=== PATIENT | female | born 1970 | race Caucasian/White ===

== ENCOUNTER 2018-06-19 14:06 | Emergency (ER) | payer SELFPAY ==
--- NOTE | 2018-06-19 14:31 | ED ---
GI/ HPI - HPI Summary HPI Summary: 47 yr old female with day two of her period, and presents here with onset of low abdominal pain 2 hours ago. Pain is 8/10. She states she gets this kind of pain with her period from time to time. She requests a toradol shot. She is having a typical menstrual flow for her. - History of Current Complaint Chief Complaint: UCAbdominalPain Time Seen by Provider: 06/19/18 14:18 Stated Complaint: LOWER RIGHT ABD PAIN Hx Last Menstrual Period: 06/17/18 Pain Intensity: 10 - Allergy/Home Medications Allergies/Adverse Reactions: Allergies Allergy/AdvReac Type Severity Reaction Status Date / Time codeine Allergy Hives Verified 06/19/18 14:07 Home Medications: Home Medications Hydrochlorothiazide TAB* [Hydrodiuril TAB*] 25 mg PO DAILY 06/19/18 [History Confirmed 06/19/18] Omeprazole 40 mg PO DAILY 06/19/18 [History Confirmed 06/19/18] cloNIDine TAB* [Catapres 0.1 MG TAB*] 0.1 mg PO DAILY PRN 06/19/18 [History Confirmed 06/19/18] PMH/Surg Hx/FS Hx/Imm Hx Endocrine/Hematology History: Denies: Hx Diabetes, Hx Thyroid Disease Cardiovascular History: Reports: Hx Hypertension Denies: Hx Congestive Heart Failure, Hx Deep Vein Thrombosis, Hx Myocardial Infarction, Hx Pacemaker/ICD Respiratory History: Denies: Hx Asthma, Hx Chronic Obstructive Pulmonary Disease (COPD), Hx Lung Cancer, Hx Pneumonia, Hx Pulmonary Embolism GI History: Denies: Hx Gall Bladder Disease, Hx Gastrointestinal Bleed, Hx Ulcer, Hx Urosepsis History: Denies: Hx Kidney Stones, Hx Renal Disease Psychiatric History: Reports: Hx Anxiety, Hx Depression - Surgical History Surgery Procedure, Year, and Place: 3 C SECTIONS Infectious Disease History: No Infectious Disease History: Reports: Hx Hepatitis - HEP C , HAS BEEN TREATED Denies: Hx Clostridium Difficile, Hx Human Immunodeficiency Virus (HIV), Hx of Known/Suspected MRSA, Hx Shingles, Hx Tuberculosis, Hx Known/Suspected VRE, Hx Known/Suspected VRSA, History Other Infectious Disease, Traveled Outside the [place] in Last 30 Days - Family History Known Family History: Positive: None Family History: no cardiovascular issues reported in family lineage - Social History Alcohol Use: None Substance Use Type: Reports: None Substance Use Comment - Amount & Last Used: previous use of heroin and pain meds Smoking Status (MU): Light Every Day Tobacco Smoker Type: Cigarettes Amount Used/How Often: 1/4 PPD Length of Time of Smoking/Using Tobacco: 30 Years Have You Smoked in the Last Year: Yes Review of Systems Constitutional: Negative Genitourinary: Other - vaginal bleeding, cramps, on her period All Other Systems Reviewed And Are Negative: Yes Physical Exam Triage Information Reviewed: Yes Vital Signs On Initial Exam: Initial Vitals Temp Pulse Resp BP Pulse Ox 98.2 F 53 20 117/77 100 06/19/18 14:10 06/19/18 14:10 06/19/18 14:10 06/19/18 14:10 06/19/18 14:10 Vital Signs Reviewed: Yes Appearance: Positive: Well-Appearing, Pain Distress - mild Skin: Positive: Warm, Skin Color Reflects Adequate Perfusion Head/Face: Positive: Normal Head/Face Inspection Eyes: Positive: EOMI ENT: Positive: Normal ENT inspection Neck: Positive: Nontender Respiratory/Lung Sounds: Positive: Clear to Auscultation, Breath Sounds Present Cardiovascular: Positive: RRR. Negative: Murmur Abdomen Description: Positive: Nontender. Negative: Distended Musculoskeletal: Positive: Strength/ROM Intact Neurological: Positive: Sensory/Motor Intact, Alert, Oriented to Person Place, Time, CN Intact II-III, Normal Gait, Speech Normal Psychiatric: Positive: Normal Diagnostics - Vital Signs Vital Signs Temp Pulse Resp BP Pulse Ox 06/19/18 14:10 98.2 F 53 20 117/77 100 - Laboratory Lab Statement: Any lab studies that have been ordered have been reviewed, and results considered in the medical decision making process. GIGU Course/Dx - Course Course Of Treatment: 47 yr old with severe RLQ pain, bleeding. Cannot do HCG by urine here, due to heavy blood in urine. She will go by ambulance to [facility]. [facility] [place] [facility]. GEN Bashir one of the providers in the ER at [place] who is aware of the patient. - Diagnoses Provider Diagnoses: Right lower quadrant abdominal pain Discharge - Sign-Out/Discharge Documenting (check all that apply): Patient Departure All imaging exams completed and their final reports reviewed: No Studies - Discharge Plan Condition: Fair Disposition: [facility] Referrals: Jerica Elmore MD [Primary Care Provider] - - Billing Disposition and Condition Condition: FAIR Disposition: Trans [facility] of Care Fac
[2018-06-19 15:04] VITALS: BP 101/54
== END 2018-06-19 15:04 | disposition short-term general hospital (02) ==
LOC: UCCORT 14:06
DX: R10.31 Right lower quadrant pain (principal); I10 Essential (primary) hypertension; F41.9 Anxiety disorder, unspecified; F17.210 Nicotine dependence, cigarettes, uncomplicated; Z79.899 Other long term (current) drug therapy; Z88.5 Allergy status to narcotic agent
CPT/HCPCS: 99213; G0463